=== PATIENT | female | born 1955 | race Caucasian/White ===

== ENCOUNTER → 2016-12-19 | Outpatient (CLI) | payer OTHER | END | disposition home or self-care (01) | LOC: PTH.S 12-15 12:30 → RAD.S 09:06 → PTH.S 09:30 | DX: C78.02 Secondary malignant neoplasm of left lung (principal); I10 Essential (primary) hypertension; E27.8 Other specified disorders of adrenal gland; R91.1 Solitary pulmonary nodule; Z90.5 Acquired absence of kidney; Z85.528 Personal history of other malignant neoplasm of kidney ==

== ENCOUNTER → 2017-04-10 | Outpatient (CLI) | payer OTHER | END | disposition home or self-care (01) | DX: C64.9 Malignant neoplasm of unspecified kidney, except renal pelvis (principal); C78.02 Secondary malignant neoplasm of left lung; I10 Essential (primary) hypertension; R91.8 Other nonspecific abnormal finding of lung field; Z90.5 Acquired absence of kidney ==